=== PATIENT | male | born 2000 | race Hispanic/Latino ===

== ENCOUNTER 2020-02-15 23:40 | Emergency (ER) | payer OTHER ==
[~2020-02-15] VITALS: Ht 180.3 cm; Wt 57.6 kg
[2020-02-15 23:44] VITALS: BP 140/78
[2020-02-15] MEDS ORDERED: NS 1000ML 1,000 ML IV STA (23:51)
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
[2020-02-16 00:45] VITALS: BP 109/55
--- NOTE | 2020-02-16 00:54 | DIREP ---
PROCEDURE:CT HEAD OR BRAIN W/O CONTRAST COMPARISON:None. INDICATIONS:trauma TECHNIQUE:CT images were created without intravenous contrast. FINDINGS: VENTRICLES:The ventricles are normal in size and configuration. CEREBRUM:Normal cerebral morphology with appropriate yo white matter differentiation. CEREBELLUM:Negative. BRAINSTEM:Negative. BASAL CISTERNS:Negative. SKULL:Normal. SINUSES:Moderate right frontal sinus opacification. OTHER:None CONCLUSION:1. No acute intracranial process. 2. Moderate right frontal sinus opacification. Dictated by: Mala Pérez M.D. on 02/16/2020 at 00:53 AM
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
[2020-02-16 01:02] LABS: BASOPHIL % 0.2 % (0.0-0.2); EOSINOPHIL # 0.1 10^3/uL (0.0-0.2); EOSINOPHIL % 1.1 % (0.0-5.0); LYMPHOCYTES % 12.8 % (24.0-44.0); MEAN CORP HGB 27.4 pg (26-34); MONOCYTES # 0.8 10^3/uL (0.3-0.8); MONOCYTES % 6.9 % (5.0-12.0); NEUTROPHIL # 8.6 10^3/uL (1.8-7.7); NEUTROPHILS % 78.9 % (41.0-85.0); PLATELET COUNT 422 10^3/uL (150-400); RED CELL DISTRIBUTION WIDTH 13.3 % (11.5-14.5)
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
[2020-02-16 01:24] LABS: CALCIUM 8.8 mg/dL (8.4-10.5); CARBON DIOXIDE 26.2 mmol/L (20.0-32)
[2020-02-16 01:49] VITALS: BP 119/87
[2020-02-16 01:58] LABS: APPEARANCE,URINE CLEAR (CLEAR); BILIRUBIN,URINE NEGATIVE (NEGATIVE); UA COLOR YELLOW (YELLOW); UROBILINOGEN,URINE NEGATIVE (NEGATIVE)
--- NOTE | 2020-02-16 02:22 | NUR ---
REPORT TO NW REPORT TO KELECHI ROMERO
--- NOTE | 2020-02-16 03:58 | PCM.EKG ---
[facility] Test Date: 2020-02-16 Test Time: 00:01:32 Pat Name: AMADA SALEEM Department: Patient ID: [facility]-[id number] Room: Gender: M [employer] Chief: IDRIS : 2000 Requested By: JED ROWELL Order Number: [id number] Reading MD: Marybel Rowell Measurements Intervals Lulu Rate: 94 P: 62 AL: 126 QRS: 86 QRSD: 92 T: 79 QT: 360 QTc: 451 Interpretive Statements Sinus Rhythm Baseline wander in lead(s) V4,V5,V6 No previous ECG available for comparison Electronically Signed On 02-17-2020 7:13:36 CDT by Marybel Rowell Please click the below link to view image of tracing.
== END 2020-02-16 02:10 | disposition short-term general hospital (02) ==
LOC: ER 23:40
DX: S19.82XA Other specified injuries of cervical trachea, initial encounter (principal); R41.0 Disorientation, unspecified; R79.1 Abnormal coagulation profile; Y93.89 Activity, other specified; V89.2XXA Person injured in unspecified motor-vehicle accident, traffic, initial encounter; Y92.410 Unspecified street and highway as the place of occurrence of the external cause; Y99.8 Other external cause status
CPT/HCPCS: 36415; 70450; 71260; 72125; 74177; 80053; 80307; 81000; 82550; 85025; 85610; 85730; 86900; 93005; 96360; 99291; G0480; Q9965; 80320; 80324